=== PATIENT | male | born 2000 | race Caucasian/White ===

== ENCOUNTER → 2022-03-29 | Day surgery (SDC) | payer OTHER ==
[~2022-03-29] MED LIST: IBUPROFEN600 MG PO; OMNICEF 300 MG300 MG PO
== END | disposition home or self-care (01) ==
LOC: OR 07:27
DX: K29.80 Duodenitis without bleeding (principal); R63.6 Underweight; J45.909 Unspecified asthma, uncomplicated; F17.290 Nicotine dependence, other tobacco product, uncomplicated; Z88.0 Allergy status to penicillin; Z91.19 Patient's noncompliance with other medical treatment and regimen
CPT/HCPCS: J2250; J2704; J7040